=== PATIENT | male | born 1960 | race American Indian/Alaskan Native ===

== ENCOUNTER 2016-11-13 23:02 | Emergency (ER) | payer MEDICARE, MEDICAID ==
--- NOTE | 2016-11-13 23:24 | EDM.PDOC ---
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 Right Groin Pain Score (Numeric/FACES): 7 - Related Data Allergies Allergy/AdvReac Type Severity Reaction Status Date / Time amoxicillin [Amoxicillin] Allergy Facial Verified 11/13/16 23:17 Swelling cephalexin monohydrate Allergy Facial Verified 11/13/16 23:17 [From Keflex] Swelling Home Meds: Home Meds Gabapentin [Neurontin] 300 mg PO BID 04/05/14 [History] Insulin Detemir [Levemir] 30 units SQ BID 04/05/14 [History] Metoprolol Tartrate [Metoprolol Tartrate] 150 mg PO BID 04/05/14 [History] Omeprazole [Omeprazole] 20 mg PO QAM 04/05/14 [History] Calcium Acetate [PhosLo] 667 mg PO TIDMEALS 10/21/15 [History] Hydrocodone/Acetaminophen [Hydrocodon-Acetaminophn 10-325] 1 tab PO Q4H PRN [History] Sevelamer Carbonate [Renvela] 800 mg PO TIDMEALS 10/21/15 [History] B Complex & C No.20/Folic Acid [Nephrocaps Softgel] 1 mg PO DAILY 12/01/15 [ History] Fludrocortisone [Florinef] 0.1 mg PO DAILY 12/01/15 [History] Furosemide 80 mg PO DAILY 12/01/15 [History] amLODIPine [Norvasc] 10 mg PO DAILY 12/01/15 [History] Calcium Carbonate/Vitamin D3 [Calcium Carb 500 MG] 1 tab CHEW TIDMEALS 10/19/16 [History] Cholecalciferol (Vitamin D3) [Vitamin D3] 2,000 units PO DAILY 10/19/16 [History ] Multivitamin with Minerals [Multivitamins with Minerals] 1 tab PO DAILY [History] Zinc 50 mg PO DAILY 10/19/16 [History] Past Medical History HEENT History: Reports: Other (see below) Other HEENT History: tatoo to right eyelid. Torn retinia and when did surg. 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 Cardiovascular History: Reports: Bypass, High cholesterol, Heart Failure, Hypertension Respiratory History: Reports: Intubation, previous, Sleep apnea Other Respiratory History: Was suppose to get a c-pap. but did not. Gastrointestinal History: Reports: Chronic diarrhea, GERD, Hepatitis Genitourinary History: Reports: Chronic renal insuffiency, Dialysis Musculoskeletal History: Reports: Back pain, chronic, Fracture, Osteoporosis, Osteoarthritis Other Musculoskeletal History: Broken back. Neurological History: Reports: Concussion, Neuropathy, diabetic, Seizure Endocrine/Metabolic History: Reports: Diabetes, type II Dermatologic History: Reports: Cellulitis, Other (see below) Other Dermatologic History: Infected toes. - Infectious Disease History Infectious Disease History: Reports: Chicken pox, Hepatitis A - Past Surgical History HEENT Surgical History: Reports: Retinal Male Surgical History: Reports: None Social & Family History - Family History Other HEENT Family History: impaired vision mother. Cardiac: Reports: Bypass, High cholesterol, Hypertension Other Cardiac Family History: mother : Reports: Diabetic nephropathy, Dialysis Other Family History: mother Neurological: Reports: Neuropathy, diabetic Endocrine/Metabolic: Reports: Diabetes, type II Other Endocrine/Metabolic Family History: mother - Tobacco Use Smoking Status *Q: Never Smoker Years of Tobacco use: 3 Packs/Tins Daily: 0.1 Second Hand Smoke Exposure: No - Caffeine Use Caffeine Use: Reports: Coffee, Soda, Tea - Alcohol Use Days Per Week of Alcohol Use: 0 - Recreational Drug Use Recreational Drug Use: No ED ROS GENERAL - Review of Systems Review Of Systems: ROS reveals no pertinent complaints other than HPI. ED EXAM, GENERAL - Physical Exam Exam: See Below Exam Limited By: No limitations General Appearance: alert, WD/WN, mild distress, other (pain) Ears: hearing grossly normal Throat/Mouth: Normal voice, No airway compromise Head: atraumatic Neck: non-tender, full range of motion Respiratory/Chest: no respiratory distress Cardiovascular: regular rate, rhythm GI/Abdominal: guarding, tender. No: rigid, rebound Neurological: alert, oriented, normal cognition, normal gait, no motor/sensory deficits Psychiatric: other (upset) Skin Exam: Warm, Dry Lymphatic: no adenopathy Course - Vital Signs Last Recorded V/S: Last Vital Signs Temp 36.8 C 11/14/16 01:39 Pulse 79 11/14/16 01:39 Resp 18 11/14/16 01:39 BP 151/74 H 11/14/16 01:39 Pulse Ox 95 11/14/16 01:39 - Orders/Labs/Meds Orders: Active Orders 24 hr Category Date Time Status CULTURE BLOOD [BC] Stat Lab 11/14/16 01:40 Received Labs: Laboratory Tests 11/13/16 11/13/16 11/14/16 Range/Units 23:40 23:40 01:40 WBC 17.2 H (5.0-10.0) 10^3/uL RBC 3.63 L (4.6-6.2) 10^6/uL Hgb 11.0 L (14.0-18.0) g/dL Hct 32.7 L (40.0-54.0) % MCV 90.1 (80-100) fL MCH 30.3 (27.0-34.0) pg MCHC 33.6 (33.0-35.0) g/dL Plt Count 161 (150-450) 10^3/uL Neut % (Auto) 73.9 (42.2-75.2) % Lymph % (Auto) 13.8 L (20.5-50.1) % [place] % (Auto) 9.8 H (2-8) % Eos % (Auto) 2.2 (1.0-3.0) % Baso % (Auto) 0.3 (0.0-1.0) % PT 10.3 (9.0-12.0) SEC INR 1.0 (0.9-1.2) APTT 28.5 (22.0-34.0) SEC Sodium 134 L (135-145) mmol/L Potassium 4.5 (3.6-5.0) mmol/L Chloride 93 L (101-111) mmol/L Carbon Dioxide 31.0 (21.0-31.0) mmol/L Anion Gap 14.5 BUN 46 H (7-18) mg/dL Creatinine 10.1 H (0.6-1.3) mg/dL Est Cr Clr Drug Dosing 8.80 mL/min Estimated GFR (MDRD) 5 BUN/Creatinine Ratio 4.55 Glucose 159 H (74-105) mg/dL Lactic Acid (0.5-2.2) mmol/L Calcium 9.5 (8.4-10.2) mg/dl Total Bilirubin 0.4 (0.2-1.0) mg/dL AST 22 (10-42) IU/L ALT 27 (10-60) IU/L Alkaline Phosphatase 85 (42-121) IU/L Total Protein 7.5 (6.7-8.2) g/dl Albumin 3.8 (3.2-5.5) g/dl Globulin 3.7 Albumin/Globulin Ratio 1.03 / Range/Units 01:40 WBC (5.0-10.0) 10^3/uL RBC (4.6-6.2) 10^6/uL Hgb (14.0-18.0) g/dL Hct (40.0-54.0) % MCV (80-100) fL MCH (27.0-34.0) pg MCHC (33.0-35.0) g/dL Plt Count (150-450) 10^3/uL Neut % (Auto) (42.2-75.2) % Lymph % (Auto) (20.5-50.1) % [place] % (Auto) (2-8) % Eos % (Auto) (1.0-3.0) % Baso % (Auto) (0.0-1.0) % PT (9.0-12.0) SEC INR (0.9-1.2) APTT (22.0-34.0) SEC Sodium (135-145) mmol/L Potassium (3.6-5.0) mmol/L Chloride (101-111) mmol/L Carbon Dioxide (21.0-31.0) mmol/L Anion Gap BUN (7-18) mg/dL Creatinine (0.6-1.3) mg/dL Est Cr Clr Drug Dosing mL/min Estimated GFR (MDRD) BUN/Creatinine Ratio Glucose (74-105) mg/dL Lactic Acid 0.9 (0.5-2.2) mmol/L Calcium (8.4-10.2) mg/dl Total Bilirubin (0.2-1.0) mg/dL AST (10-42) IU/L ALT (10-60) IU/L Alkaline Phosphatase (42-121) IU/L Total Protein (6.7-8.2) g/dl Albumin (3.2-5.5) g/dl Globulin Albumin/Globulin Ratio Meds: Medications Discontinued Medications Generic Name Dose Route Start Last Admin Trade Name Dangelo PRN Reason Stop Dose Admin Hydromorphone HCl 1 mg 11/14/16 00:21 11/14/16 00:26 Dilaudid IVPUSH 11/14/16 00:22 1 mg ONETIME ONE Administration Ciprofloxacin/Dextrose 400 mg/ 200 mls @ 200 mls/hr 11/14/16 01:02 11/14/16 01:55 Premix IV 11/14/16 02:01 200 mls/hr ONETIME ONE Administration Metronidazole 500 mg/ Premix 100 mls @ 100 mls/hr 11/14/16 01:02 11/14/16 01: 36 IV 11/14/16 02:01 100 mls/hr ONETIME ONE Administration Ondansetron HCl 4 mg 11/14/16 00:21 11/14/16 00:26 Zofran IV 11/14/16 00:22 4 mg ONETIME ONE Administration - Re-Assessments/Exams Free Text/Narrative Re-Assessment/Exam: 11/14/16 00:20 results discussed with Pt and daughter states problem began with diarrhoea & vomiting on-off but tonight pain got worse. 11/14/16 01:03 GF>MINOT>ROBINSON. Dr Culp kindly accepted Pt. Departure - Departure Time of Disposition: 02:00 Disposition: DC/Tfer to Acute Hospital 02 Condition: fair Clinical Impression: Ischemic bowel syndrome, Pseudomembranous colitis, Colitis Referrals: PCP,Unobtain [Primary Care Provider] - Forms: Interfacility Transfer EMTALA - My Orders Last 24 Hours: My Active Orders 11/14/16 01:40 CULTURE BLOOD [BC] Stat - Assessment/Plan Last 24 Hours: My Active Orders 11/14/16 01:40 CULTURE BLOOD [BC] Stat
[2016-11-14] MEDS ORDERED: Ondansetron 4 MG/2 ML SDV IV ONE (00:21)
[2016-11-14] MEDS ORDERED: HYDROmorphone 1 MG/ML Syringe IVPUSH ONE (00:21)
[2016-11-14] MEDS ORDERED: metroNIDAZOLE/Normal Saline 500 MG in Premix Bag 100 BAG IV ONE (01:02)
[2016-11-14 01:40] VITALS: BP 151/74
[2016-11-14] MEDS: Ciprofloxacin in D5W 400 MG in Premix Bag 1 BAG IV ONE ×4 (01:47→01:55)
== END 2016-11-14 02:01 ==
LOC: DL.ED 23:02
DX: A04.7 Enterocolitis due to Clostridium difficile (principal); K55.9 Vascular disorder of intestine, unspecified; E78.00 Pure hypercholesterolemia, unspecified; I11.0 Hypertensive heart disease with heart failure; I50.9 Heart failure, unspecified; K21.9 Gastro-esophageal reflux disease without esophagitis; M19.90 Unspecified osteoarthritis, unspecified site; E11.40 Type 2 diabetes mellitus with diabetic neuropathy, unspecified; Z88.1 Allergy status to other antibiotic agents; Z79.4 Long term (current) use of insulin; Z79.899 Other long term (current) drug therapy
CPT/HCPCS: 36415; 74176; 80053; 83605; 85025; 85610; 85730; 87040; 96365; 96375; 99285; J0744; J1170; J2405; 99283

== ENCOUNTER 2016-11-19 17:50 | Emergency (ER) | payer MEDICARE, MEDICAID ==
--- NOTE | 2016-11-19 18:55 | EDM.PDOC ---
ED HISTORY OF PRESENT ILLNESS - General Chief Complaint: Cardiovascular Problem Stated Complaint: HEART ATTACK Time Seen by Provider: 11/19/16 18:54 Source of Information: Reports: Patient, Family History Limitations: Reports: No limitations - History of Present Illness INITIAL COMMENTS - FREE TEXT/NARRATIVE: s/p GB surgery tuesday was OK then Tuesday been having chest discomfort and worse today with SOB but no chest pain, went to [facility] and sent here. - Related Data Allergies/ADRs: Allergies Allergy/AdvReac Type Severity Reaction Status Date / Time amoxicillin [Amoxicillin] Allergy Facial Verified 11/19/16 18:46 Swelling cephalexin monohydrate Allergy Facial Verified 11/19/16 18:46 [From Keflex] Swelling Home Meds: Home Meds Gabapentin [Neurontin] 300 mg PO BID 04/05/14 [History] Insulin Detemir [Levemir] 30 units SQ BID 04/05/14 [History] Metoprolol Tartrate [Metoprolol Tartrate] 150 mg PO BID 04/05/14 [History] Omeprazole [Omeprazole] 20 mg PO QAM 04/05/14 [History] Calcium Acetate [PhosLo] 667 mg PO TIDMEALS 10/21/15 [History] Hydrocodone/Acetaminophen [Hydrocodon-Acetaminophn 10-325] 1 tab PO Q4H PRN [History] Sevelamer Carbonate [Renvela] 800 mg PO TIDMEALS 10/21/15 [History] B Complex & C No.20/Folic Acid [Nephrocaps Softgel] 1 mg PO DAILY 12/01/15 [ History] Fludrocortisone [Florinef] 0.1 mg PO DAILY 12/01/15 [History] Furosemide 80 mg PO DAILY 12/01/15 [History] amLODIPine [Norvasc] 10 mg PO DAILY 12/01/15 [History] Calcium Carbonate/Vitamin D3 [Calcium Carb 500 MG] 1 tab CHEW TIDMEALS 10/19/16 [History] Cholecalciferol (Vitamin D3) [Vitamin D3] 2,000 units PO DAILY 10/19/16 [History ] Multivitamin with Minerals [Multivitamins with Minerals] 1 tab PO DAILY [History] Zinc 50 mg PO DAILY 10/19/16 [History] Past Medical History HEENT History: Reports: Other (see below) Other HEENT History: tatoo to right eyelid. Torn retinia and when did surg. 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 Cardiovascular History: Reports: Bypass, High cholesterol, Heart Failure, Hypertension Respiratory History: Reports: Intubation, previous, Sleep apnea Other Respiratory History: Was suppose to get a c-pap. but did not. Gastrointestinal History: Reports: Chronic diarrhea, GERD, Hepatitis Genitourinary History: Reports: Chronic renal insuffiency, Dialysis Musculoskeletal History: Reports: Back pain, chronic, Fracture, Osteoporosis, Osteoarthritis Other Musculoskeletal History: Broken back. Neurological History: Reports: Concussion, Neuropathy, diabetic, Seizure Endocrine/Metabolic History: Reports: Diabetes, type II Dermatologic History: Reports: Cellulitis, Other (see below) Other Dermatologic History: Infected toes. - Infectious Disease History Infectious Disease History: Reports: Chicken pox, Hepatitis A - Past Surgical History HEENT Surgical History: Reports: Retinal GI Surgical History: Reports: Cholecystectomy Other GI Surgeries/Procedures: 4 port cholecystectomy Male Surgical History: Reports: None Social & Family History - Family History Other HEENT Family History: impaired vision mother. Cardiac: Reports: Bypass, High cholesterol, Hypertension Other Cardiac Family History: mother : Reports: Diabetic nephropathy, Dialysis Other Family History: mother Neurological: Reports: Neuropathy, diabetic Endocrine/Metabolic: Reports: Diabetes, type II Other Endocrine/Metabolic Family History: mother - Tobacco Use Smoking Status *Q: Never Smoker Years of Tobacco use: 3 Packs/Tins Daily: 0.1 Second Hand Smoke Exposure: No - Caffeine Use Caffeine Use: Reports: Coffee, Soda, Tea - Alcohol Use Days Per Week of Alcohol Use: 0 - Recreational Drug Use Recreational Drug Use: No ED ROS GENERAL - Review of Systems Review Of Systems: ROS reveals no pertinent complaints other than HPI. ED EXAM, GENERAL - Physical Exam Exam: See Below Exam Limited By: No limitations General Appearance: alert, WD/WN, mild distress, other (upset) Ears: hearing grossly normal Throat/Mouth: Normal voice, No airway compromise Head: atraumatic Neck: non-tender, full range of motion Respiratory/Chest: no respiratory distress, no accessory muscle use, rhonchi Cardiovascular: regular rate, rhythm GI/Abdominal: soft, non tender Neurological: alert, oriented, normal cognition, normal gait, no motor/sensory deficits Psychiatric: flat affect Skin Exam: Warm, Dry Lymphatic: no adenopathy Course - Vital Signs Last Recorded V/S: Last Vital Signs Temp 36.3 C 11/19/16 18:34 Pulse 74 11/19/16 18:34 Resp 19 11/19/16 18:34 BP 149/73 H 11/19/16 18:34 Pulse Ox 100 11/19/16 18:34 - Orders/Labs/Meds Orders: Active Orders 24 hr Category Date Time Status EKG 12 Lead [EKG Documentation Completion] [RC] STAT Care 11/19/16 18:52 Active Chest 1V Frontal [CR] Urgent Exams 11/19/16 19:55 Ordered Labs: Laboratory Tests 11/19/16 11/19/16 11/19/16 Range/Units 19:00 19:00 19:00 WBC 9.8 (5.0-10.0) 10^3/uL RBC 4.07 L (4.6-6.2) 10^6/uL Hgb 12.1 L (14.0-18.0) g/dL Hct 36.2 L (40.0-54.0) % MCV 88.9 (80-100) fL MCH 29.7 (27.0-34.0) pg MCHC 33.4 (33.0-35.0) g/dL Plt Count 200 (150-450) 10^3/uL Neut % (Auto) 64.7 (42.2-75.2) % Lymph % (Auto) 16.0 L (20.5-50.1) % [place] % (Auto) 15.3 H (2-8) % Eos % (Auto) 3.5 H (1.0-3.0) % Baso % (Auto) 0.5 (0.0-1.0) % D-Dimer, Quantitative 2330 H (0-400) ng/mL Sodium 136 (135-145) mmol/L Potassium 4.5 (3.6-5.0) mmol/L Chloride 97 L (101-111) mmol/L Carbon Dioxide 29.0 (21.0-31.0) mmol/L Anion Gap 14.5 BUN 15 (7-18) mg/dL Creatinine 7.3 H (0.6-1.3) mg/dL Est Cr Clr Drug Dosing 12.13 mL/min Estimated GFR (MDRD) 8 BUN/Creatinine Ratio 2.05 Glucose 203 H (74-105) mg/dL Calcium 9.5 (8.4-10.2) mg/dl Total Bilirubin 0.4 (0.2-1.0) mg/dL AST 64 H (10-42) IU/L ALT 84 H (10-60) IU/L Alkaline Phosphatase 155 H (42-121) IU/L Troponin I 0.02 (0.00-0.02) ng/ml B-Natriuretic Peptide 1000 H (0-100) pg/ml Total Protein 7.4 (6.7-8.2) g/dl Albumin 3.4 (3.2-5.5) g/dl Globulin 4.0 Albumin/Globulin Ratio 0.85 - Re-Assessments/Exams Free Text/Narrative Re-Assessment/Exam: 11/19/16 19:56 results discussed with Pt and son. 11/19/16 20:[address] Marquis @ who kindly accepted pt. Departure - Departure Time of Disposition: 20:14 Disposition: DC/Tfer to Acute Hospital 02 Reason for Transfer *Q: Other Condition: good Clinical Impression: Dyspnea on exertion, Elevated d-dimer, Status post cholecystectomy, Elevated brain natriuretic peptide (BNP) level Forms: Interfacility Transfer EMTALA - My Orders Last 24 Hours: My Active Orders 11/19/16 18:52 EKG 12 Lead [EKG Documentation Completion] [RC] STAT 11/19/16 19:55 Chest 1V Frontal [CR] Urgent - Assessment/Plan Last 24 Hours: My Active Orders 11/19/16 18:52 EKG 12 Lead [EKG Documentation Completion] [RC] STAT 11/19/16 19:55 Chest 1V Frontal [CR] Urgent
[2016-11-19 20:17] VITALS: BP 141/80
--- NOTE | 2016-11-23 11:22 | EKG ---
11/19/2016 - [facility] - TIME: 1852 hours. EKG shows sinus rhythm. There is prolonged QT interval, left axis deviation. [facility] /[id number]
== END 2016-11-19 21:01 ==
LOC: DL.ED 17:50
DX: R06.09 Other forms of dyspnea (principal); R79.89 Other specified abnormal findings of blood chemistry; R79.1 Abnormal coagulation profile; E78.00 Pure hypercholesterolemia, unspecified; I11.0 Hypertensive heart disease with heart failure; I50.9 Heart failure, unspecified; K21.9 Gastro-esophageal reflux disease without esophagitis; M19.90 Unspecified osteoarthritis, unspecified site; E11.40 Type 2 diabetes mellitus with diabetic neuropathy, unspecified; Z95.1 Presence of aortocoronary bypass graft; Z90.49 Acquired absence of other specified parts of digestive tract; Z88.1 Allergy status to other antibiotic agents; Z79.4 Long term (current) use of insulin; Z79.899 Other long term (current) drug therapy
CPT/HCPCS: 36415; 71010; 80053; 83880; 84484; 85025; 85379; 93005; 93010; 99284; 99285

== ENCOUNTER 2017-05-21 04:55 | Emergency (ER) | payer MEDICARE, MEDICAID ==
--- NOTE | 2017-05-21 05:21 | EDM.PDOC ---
ED HPI GENERAL MEDICAL PROBLEM - General Chief Complaint: Cardiovascular Problem Stated Complaint: PACEMAKER MESSING UP [id number] Time Seen by Provider: 05/21/17 05:17 Source of Information: Reports: Patient History Limitations: Reports: No Limitations - History of Present Illness INITIAL COMMENTS - FREE TEXT/NARRATIVE: states got home from visiting friends and about to get to bed and can hear his heart rate going up & down. sees Dr See once yearly for paceer check last check in denies CP/SOB. 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 - Related Data Allergies Allergy/AdvReac Type Severity Reaction Status Date / Time amoxicillin [Amoxicillin] Allergy Facial Verified 05/21/17 05:33 Swelling cephalexin monohydrate Allergy Facial Verified 05/21/17 05:33 [From Keflex] Swelling Home Meds: Home Meds Gabapentin [Neurontin] 300 mg PO BID 04/05/14 [History] Insulin Detemir [Levemir] 30 units SQ BID 04/05/14 [History] Metoprolol Tartrate [Metoprolol Tartrate] 150 mg PO BID 04/05/14 [History] Omeprazole [Omeprazole] 20 mg PO QAM 04/05/14 [History] Calcium Acetate [PhosLo] 667 mg PO TIDMEALS 10/21/15 [History] Sevelamer Carbonate [Renvela] 800 mg PO TIDMEALS 10/21/15 [History] B Complex & C No.20/Folic Acid [Nephrocaps Softgel] 1 mg PO DAILY 12/01/15 [ History] Fludrocortisone [Florinef] 0.1 mg PO DAILY 12/01/15 [History] Furosemide 80 mg PO DAILY 12/01/15 [History] amLODIPine [Norvasc] 10 mg PO DAILY 12/01/15 [History] Calcium Carbonate/Vitamin D3 [Calcium Carb 500 MG] 1 tab CHEW TIDMEALS 10/19/16 [History] Cholecalciferol (Vitamin D3) [Vitamin D3] 2,000 units PO DAILY 10/19/16 [History ] Multivitamin with Minerals [Multivitamins with Minerals] 1 tab PO DAILY [History] Zinc 50 mg PO DAILY 10/19/16 [History] Past Medical History HEENT History: Reports: Other (See Below) Other HEENT History: tatoo to right eyelid. Torn retinia and when did surg. 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 Cardiovascular History: Reports: Bypass, High Cholesterol, Heart Failure, Hypertension Respiratory History: Reports: Intubation, Previous, Sleep Apnea Other Respiratory History: Was suppose to get a c-pap. but did not. Gastrointestinal History: Reports: Chronic Diarrhea, GERD, Hepatitis Genitourinary History: Reports: Chronic Renal Insuffiency, Dialysis Musculoskeletal History: Reports: Back Pain, Chronic, Fracture, Osteoporosis, Osteoarthritis Other Musculoskeletal History: Broken back. Neurological History: Reports: Concussion, Neuropathy, Diabetic, Seizure Endocrine/Metabolic History: Reports: Diabetes, Type II Dermatologic History: Reports: Cellulitis, Other (See Below) Other Dermatologic History: Infected toes. - Infectious Disease History Infectious Disease History: Reports: Chicken Pox, Hepatitis A - Past Surgical History HEENT Surgical History: Reports: Retinal GI Surgical History: Reports: Cholecystectomy Other GI Surgeries/Procedures: 4 port cholecystectomy Male Surgical History: Reports: None Social & Family History - Family History Other HEENT Family History: impaired vision mother. Cardiac: Reports: Bypass, High Cholesterol, Hypertension Other Cardiac Family History: mother : Reports: Diabetic Nephropathy, Dialysis Other Family History: mother Neurological: Reports: Neuropathy, Diabetic Endocrine/Metabolic: Reports: Diabetes, type II Other Endocrine/Metabolic Family History: mother - Tobacco Use Smoking Status *Q: Never Smoker Years of Tobacco use: 3 Packs/Tins Daily: 0.1 Second Hand Smoke Exposure: No - Caffeine Use Caffeine Use: Reports: Coffee, Soda, Tea - Alcohol Use Days Per Week of Alcohol Use: 0 - Recreational Drug Use Recreational Drug Use: No ED ROS GENERAL - Review of Systems Review Of Systems: ROS reveals no pertinent complaints other than HPI. ED EXAM, GENERAL - Physical Exam Exam: See Below Exam Limited By: No Limitations General Appearance: Alert, WD/WN, No Apparent Distress, Other (pleasant) Ears: Hearing Grossly Normal Throat/Mouth: Normal Voice, No Airway Compromise Head: Atraumatic Neck: Non-Tender, Full Range of Motion Respiratory/Chest: No Respiratory Distress Cardiovascular: Irregularly Irregular GI/Abdominal: Soft, Non-Tender Neurological: Alert, Oriented, Normal Cognition, Normal Gait, No Motor/Sensory Deficits Psychiatric: Normal Affect, Normal Mood Skin Exam: Warm, Dry, Normal Color Lymphatic: No Adenopathy Course - Vital Signs Last Recorded V/S: Last Vital Signs Temp 35.4 C 05/21/17 05:30 Pulse 52 L 05/21/17 05:30 Resp 20 05/21/17 05:30 BP 144/76 H 05/21/17 05:30 Pulse Ox 100 05/21/17 05:30 - Orders/Labs/Meds Orders: Active Orders 24 hr Category Date Time Status EKG 12 Lead [EKG Documentation Completion] [RC] STAT Care 05/21/17 05:21 Active Labs: Laboratory Tests 05/21/17 05/21/17 Range/Units 05:30 05:30 WBC 7.3 (5.0-10.0) 10^3/uL RBC 4.36 L (4.6-6.2) 10^6/uL Hgb 13.5 L (14.0-18.0) g/dL Hct 40.2 (40.0-54.0) % MCV 92.2 (80-100) fL MCH 31.0 (27.0-34.0) pg MCHC 33.6 (33.0-35.0) g/dL Plt Count 192 (150-450) 10^3/uL Neut % (Auto) 47.2 (42.2-75.2) % Lymph % (Auto) 35.4 (20.5-50.1) % [place] % (Auto) 12.1 H (2-8) % Eos % (Auto) 4.1 H (1.0-3.0) % Baso % (Auto) 1.2 H (0.0-1.0) % Sodium 136 (135-145) mmol/L Potassium 4.0 (3.6-5.0) mmol/L Chloride 95 L (101-111) mmol/L Carbon Dioxide 24.0 (21.0-31.0) mmol/L Anion Gap 21.0 BUN 28 H (7-18) mg/dL Creatinine 8.5 H (0.6-1.3) mg/dL Est Cr Clr Drug Dosing 10.46 mL/min Estimated GFR (MDRD) 7 BUN/Creatinine Ratio 3.29 Glucose 179 H (74-105) mg/dL Calcium 8.4 (8.4-10.2) mg/dl Total Bilirubin 0.5 (0.2-1.0) mg/dL AST 30 (10-42) IU/L ALT 38 (10-60) IU/L Alkaline Phosphatase 114 (42-121) IU/L Troponin I < 0.02 (0.00-0.02) ng/ml Total Protein 8.3 H (6.7-8.2) g/dl Albumin 4.0 (3.2-5.5) g/dl Globulin 4.3 Albumin/Globulin Ratio 0.93 - Re-Assessments/Exams Free Text/Narrative Re-Assessment/Exam: 05/21/17 06:19 results discussed with pt who is feeling ok presently except for his heart feeling "funny". case discussed with Dr Ybarra @ who kindly accepted pt. Departure - Departure Time of Disposition: 06:20 Disposition: DC/Tfer to Acute Hospital 02 Reason for Transfer *Q: Other Condition: Good Clinical Impression: Pacemaker malfunction Qualifiers: Encounter type: initial encounter Qualified Code(s): T82.111A - Breakdown ( mechanical) of cardiac pulse generator (battery), initial encounter Forms: Interfacility Transfer EMTALA - My Orders Last 24 Hours: My Active Orders 05/21/17 05:21 EKG 12 Lead [EKG Documentation Completion] [RC] STAT - Assessment/Plan Last 24 Hours: My Active Orders 05/21/17 05:21 EKG 12 Lead [EKG Documentation Completion] [RC] STAT
[2017-05-21 05:32] VITALS: BP 144/76
[2017-05-21 05:58] LABS: CHLORIDE,CL 95 mmol/L (101-111); SODIUM,NA 136 mmol/L (135-145)
--- NOTE | 2017-05-30 10:41 | EKG ---
05/21/2017- [facility] - This is a standard 12-lead EKG showing normal sinus rhythm with a ventricular rate of 71 beats per minute. Multiple premature ventricular complexes. No significant ST changes. Normal ND interval, QRS duration. [facility] /[id number]
== END 2017-05-21 07:15 ==
LOC: DL.ED 04:55
DX: T82.111A Breakdown (mechanical) of cardiac pulse generator (battery), initial encounter (principal); I13.0 Hypertensive heart and chronic kidney disease with heart failure and stage 1 through stage 4 chronic kidney disease, or unspecified chronic kidney disease; E11.22 Type 2 diabetes mellitus with diabetic chronic kidney disease; E11.40 Type 2 diabetes mellitus with diabetic neuropathy, unspecified; N18.9 Chronic kidney disease, unspecified; E78.00 Pure hypercholesterolemia, unspecified; M19.90 Unspecified osteoarthritis, unspecified site; M81.0 Age-related osteoporosis without current pathological fracture; Z90.49 Acquired absence of other specified parts of digestive tract; Z98.890 Other specified postprocedural states; Z79.4 Long term (current) use of insulin; Z79.899 Other long term (current) drug therapy; Z88.1 Allergy status to other antibiotic agents
CPT/HCPCS: 36415; 80053; 84484; 85025; 93005; 93010; 99284; 99285

== ENCOUNTER 2017-08-24 20:47 | Emergency (ER) | payer MEDICARE, MEDICAID ==
[2017-08-24] MEDS ORDERED: Acetaminophen/HYDROcodone 325-10 MG Tab PO ONE (20:48)
[2017-08-24] MEDS ORDERED: Ondansetron 4 MG/2 ML SDV IV ONE (21:13)
[2017-08-24] MEDS ORDERED: Sodium Chloride 0.9% 1,000 ML IV ONE (21:13)
[2017-08-24] MEDS ORDERED: HYDROmorphone 1 MG/ML Syringe IVPUSH ONE (21:13)
--- NOTE | 2017-08-24 21:15 | EDM.PDOC ---
ED HPI GENERAL MEDICAL PROBLEM - General Chief Complaint: Gastrointestinal Problem Stated Complaint: SEVERE ABD PAIN Time Seen by Provider: 08/24/17 21:07 Source of Information: Reports: Patient History Limitations: Reports: No Limitations - History of Present Illness INITIAL COMMENTS - FREE TEXT/NARRATIVE: ED with c/o right sided abdominal pain since 0900. unable to rest with pain, vomited x 1. CRF, on dialysis. last run today. Emesis x 1 about 2 hours ago. Onset: Today Treatments MAT PACKER: Reports: Aspirin Right Lower Abdomen Pain Score (Numeric/FACES): 9 - Related Data Allergies Allergy/AdvReac Type Severity Reaction Status Date / Time amoxicillin [Amoxicillin] Allergy Facial Verified 08/24/17 21:22 Swelling cephalexin monohydrate Allergy Facial Verified 08/24/17 21:22 [From Keflex] Swelling Home Meds: Home Meds Gabapentin [Neurontin] 300 mg PO BID 04/05/14 [History] Insulin Detemir [Levemir] 30 units SQ BID 04/05/14 [History] Metoprolol Tartrate [Metoprolol Tartrate] 150 mg PO BID 04/05/14 [History] Omeprazole [Omeprazole] 20 mg PO QAM 04/05/14 [History] Calcium Acetate [PhosLo] 667 mg PO TIDMEALS 10/21/15 [History] Sevelamer Carbonate [Renvela] 800 mg PO TIDMEALS 10/21/15 [History] B Complex & C No.20/Folic Acid [Nephrocaps Softgel] 1 mg PO DAILY 12/01/15 [ History] Fludrocortisone [Florinef] 0.1 mg PO DAILY 12/01/15 [History] Furosemide 80 mg PO DAILY 12/01/15 [History] amLODIPine [Norvasc] 10 mg PO DAILY 12/01/15 [History] Calcium Carbonate/Vitamin D3 [Calcium Carb 500 MG] 1 tab CHEW TIDMEALS 10/19/16 [History] Cholecalciferol (Vitamin D3) [Vitamin D3] 2,000 units PO DAILY 10/19/16 [History ] Multivitamin with Minerals [Multivitamins with Minerals] 1 tab PO DAILY [History] Zinc 50 mg PO DAILY 10/19/16 [History] Past Medical History HEENT History: Reports: Other (See Below) Other HEENT History: tatoo to right eyelid. Torn retinia and when did surg. 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 Cardiovascular History: Reports: Bypass, High Cholesterol, Heart Failure, Hypertension Respiratory History: Reports: Intubation, Previous, Sleep Apnea Other Respiratory History: Was suppose to get a c-pap. but did not. Gastrointestinal History: Reports: Chronic Diarrhea, GERD, Hepatitis Genitourinary History: Reports: Chronic Renal Insuffiency, Dialysis Musculoskeletal History: Reports: Back Pain, Chronic, Fracture, Osteoporosis, Osteoarthritis Other Musculoskeletal History: Broken back. Neurological History: Reports: Concussion, Neuropathy, Diabetic, Seizure Endocrine/Metabolic History: Reports: Diabetes, Type II Dermatologic History: Reports: Cellulitis, Other (See Below) Other Dermatologic History: Infected toes. - Infectious Disease History Infectious Disease History: Reports: Chicken Pox, Hepatitis A - Past Surgical History HEENT Surgical History: Reports: Retinal GI Surgical History: Reports: Cholecystectomy Other GI Surgeries/Procedures: 4 port cholecystectomy Male Surgical History: Reports: None Social & Family History - Family History Other HEENT Family History: impaired vision mother. Cardiac: Reports: Bypass, High Cholesterol, Hypertension Other Cardiac Family History: mother : Reports: Diabetic Nephropathy, Dialysis Other Family History: mother Neurological: Reports: Neuropathy, Diabetic Endocrine/Metabolic: Reports: Diabetes, type II Other Endocrine/Metabolic Family History: mother - Tobacco Use Smoking Status *Q: Never Smoker Years of Tobacco use: 3 Packs/Tins Daily: 0.1 Second Hand Smoke Exposure: No - Caffeine Use Caffeine Use: Reports: Coffee - Alcohol Use Days Per Week of Alcohol Use: 0 - Recreational Drug Use Recreational Drug Use: No ED ROS GENERAL - Review of Systems Review Of Systems: See Below Constitutional: Denies: Fever, Chills HEENT: Reports: No Symptoms Respiratory: Reports: No Symptoms Cardiovascular: Reports: No Symptoms Endocrine: Reports: Other (Dialysis) GI/Abdominal: Reports: Abdominal Pain, Vomiting (x1). Denies: Distension : Reports: No Symptoms Musculoskeletal: Reports: No Symptoms Skin: Reports: No Symptoms Neurological: Reports: No Symptoms ED EXAM, GI/ABD - Physical Exam Exam: See Below Exam Limited By: No Limitations General Appearance: Alert, Moderate Distress Eyes: Left: EOMI Ears: Normal External Exam Nose: Normal Inspection Throat/Mouth: Normal Inspection, Other (dry mucus membranes) Head: Atraumatic, Normocephalic Neck: Normal Inspection, Full Range of Motion Respiratory/Chest: Decreased Breath Sounds (bases) Cardiovascular: Normal Peripheral Pulses, Regular Rate, Rhythm GI/Abdominal Exam: Rebound (right lwer quad), Tender (right upper to lower), Abnormal Bowel Sounds (hyper upper, hypo lower) Extremities: Normal Inspection Neurological: Alert, Oriented, Normal Cognition Psychiatric: Flat Affect Skin Exam: Warm, Dry, Jaundice Course - Vital Signs Last Recorded V/S: Last Vital Signs Temp 97.8 F 08/24/17 21:12 Pulse 58 L 08/24/17 21:58 Resp 14 08/24/17 21:58 BP 136/66 08/24/17 21:58 Pulse Ox 92 L 08/24/17 21:58 - Orders/Labs/Meds Labs: Laboratory Tests 08/24/17 08/24/17 08/24/17 Range/Units 21:19 21:19 21:19 WBC 15.5 H (5.0-10.0) 10^3/uL RBC 4.41 L (4.6-6.2) 10^6/uL Hgb 13.5 L (14.0-18.0) g/dL Hct 39.7 L (40.0-54.0) % MCV 90.0 (80-100) fL MCH 30.6 (27.0-34.0) pg MCHC 34.0 (33.0-35.0) g/dL Plt Count 188 (150-450) 10^3/uL Neut % (Auto) 81.6 H (42.2-75.2) % Lymph % (Auto) 8.5 L (20.5-50.1) % [place] % (Auto) 6.8 (2-8) % Eos % (Auto) 2.8 (1.0-3.0) % Baso % (Auto) 0.3 (0.0-1.0) % Sodium 137 (135-145) mmol/L Potassium 4.8 (3.6-5.0) mmol/L Chloride 97 L (101-111) mmol/L Carbon Dioxide 26.0 (21.0-31.0) mmol/L Anion Gap 18.8 BUN 29 H (7-18) mg/dL Creatinine 8.3 H (0.6-1.3) mg/dL Est Cr Clr Drug Dosing 10.58 mL/min Estimated GFR (MDRD) 7 BUN/Creatinine Ratio 3.49 Glucose 138 H (74-105) mg/dL Lactic Acid 1.9 (0.5-2.2) mmol/L Calcium 8.9 (8.4-10.2) mg/dl Total Bilirubin 0.8 (0.2-1.0) mg/dL AST 41 (10-42) IU/L ALT 39 (10-60) IU/L Alkaline Phosphatase 103 (42-121) IU/L Total Protein 7.7 (6.7-8.2) g/dl Albumin 4.0 (3.2-5.5) g/dl Globulin 3.7 Albumin/Globulin Ratio 1.08 Amylase 70 (28-100) U/L Lipase 41 (22-51) U/L Meds: Medications Discontinued Medications Generic Name Dose Route Start Last Admin Trade Name Freq PRN Reason Stop Dose Admin Hydrocodone Bitart/Acetaminophen Confirm 08/24/17 23:02 08/24/17 23:08 Jonancy 325-5 Mg Administered 08/24/17 23:03 Not Given Dose 2 tab .ROUTE .STK-MED ONE Ciprofloxacin 500 mg 08/24/17 22:46 08/24/17 22:51 Ciprofloxacin Hcl PO 08/24/17 22:47 500 mg ONETIME ONE Administration Hydromorphone HCl 1 mg 08/24/17 21:13 08/24/17 21:19 Dilaudid IVPUSH 08/24/17 21:14 1 mg ONETIME ONE Administration Sodium Chloride 1,000 mls @ 50 mls/hr 08/24/17 21:13 08/24/17 21:19 Normal Saline IV 08/25/17 17:12 50 mls/hr .BOLUS ONE Administration Metronidazole 250 mg 08/24/17 22:40 08/24/17 23:42 Metronidazole PO 08/24/17 22:41 Not Given ONETIME ONE Ondansetron HCl 4 mg 08/24/17 21:13 08/24/17 21:19 Zofran IV 08/24/17 21:14 4 mg ONETIME ONE Administration - Radiology Interpretation Free Text/Narrative:: CT abdomen: Entercolitis Departure - Departure Time of Disposition: 22:48 Disposition: Home, Self-Care 01 Condition: Fair Clinical Impression: Enterocolitis - Discharge Information Instructions: Abdominal Pain, Adult, [id number] Forms: ED Department Discharge Additional Instructions: flagyl 500mg one three times daily for one week Cipro 500mg one daily for one week follow up with primary care on Tuesday Urgent return if increased pain and develop fever light diet hypdrocodone 5/325 one every 6 hours as needed for severe pain
[2017-08-24 22:00] VITALS: BP 136/66
[2017-08-24] MEDS ORDERED: metroNIDAZOLE 250 MG Tab PO ONE (22:40)
[2017-08-24] MEDS ORDERED: Ciprofloxacin 500 MG Tab PO ONE (22:46)
[2017-08-24] MEDS ORDERED: Acetaminophen/HYDROcodone 325-5 MG Tab ONE (23:02)
== END 2017-08-24 23:04 | disposition home or self-care (01) ==
LOC: DL.ED 20:47
DX: K52.9 Noninfective gastroenteritis and colitis, unspecified (principal); I13.0 Hypertensive heart and chronic kidney disease with heart failure and stage 1 through stage 4 chronic kidney disease, or unspecified chronic kidney disease; I50.9 Heart failure, unspecified; E78.00 Pure hypercholesterolemia, unspecified; N18.9 Chronic kidney disease, unspecified; Z88.1 Allergy status to other antibiotic agents; Z88.6 Allergy status to analgesic agent; Z79.899 Other long term (current) drug therapy
CPT/HCPCS: 36415; 74176; 80053; 82150; 83605; 83690; 85025; 96361; 96374; 96375; 99284; A9270; J1170; J2405; J7030

== ENCOUNTER 2019-01-01 05:42 | Emergency (ER) | payer MEDICARE, MEDICAID ==
[2019-01-01] MEDS ORDERED: EPINEPHrine 1:10,000 1 MG/10 ML Syringe IV ONE (05:43)
--- NOTE | 2019-01-01 06:13 | EDM.PDOC ---
ED HPI GENERAL MEDICAL PROBLEM - General Chief Complaint: CPR in Progress Stated Complaint: AMBULANCE-CODE BLUE Time Seen by Provider: 01/01/19 05:42 Source of Information: Reports: EMS, Family - History of Present Illness INITIAL COMMENTS - FREE TEXT/NARRATIVE: ED via [facility] with CPR in progress. Patient found by family with seizure like activity, stopped breathing and family initiated CPR approximately 5 am . ALS arrival at 0515. Isaias device on patient per EMS. 7.5 ET , Moderate to severe gastric distension. Coarse breath sounds Skin cool mottled, , nail beds cyanotic. No Palpable pulse. shock x3, EPi x 2 baseline asystole firing, no capture pacer. Empty bottle of Gabapentin at bedside RX date of October. Son reported that patient only c/o yesterday of aching to arms and legs , [facility] normal activity, c/o pain to legs and extremities prior to bed.. 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: CPR - Related Data Allergies Allergy/AdvReac Type Severity Reaction Status Date / Time amoxicillin [Amoxicillin] Allergy Facial Verified 08/31/18 22:38 Swelling cephalexin monohydrate Allergy Facial Verified 08/31/18 22:38 [From Keflex] Swelling Home Meds: Home Meds Gabapentin [Neurontin] 300 mg PO BID 04/05/14 [History] Insulin Detemir [Levemir] 30 units SQ BID 04/05/14 [History] Metoprolol Tartrate 150 mg PO BID 04/05/14 [History] Omeprazole 20 mg PO QAM 04/05/14 [History] Calcium Acetate [PhosLo] 667 mg PO TIDMEALS 10/21/15 [History] Sevelamer Carbonate [Renvela] 800 mg PO TIDMEALS 10/21/15 [History] B Complex W-C No.20/Folic Acid [Nephrocaps Softgel] 1 mg PO DAILY 12/01/15 [ History] Fludrocortisone [Florinef] 0.1 mg PO DAILY 12/01/15 [History] Furosemide 80 mg PO DAILY 12/01/15 [History] amLODIPine [Norvasc] 10 mg PO DAILY 12/01/15 [History] Calcium Carbonate/Vitamin D3 [Calcium Carb 500 MG] 1 tab CHEW TIDMEALS 10/19/16 [History] Cholecalciferol (Vitamin D3) [Vitamin D3] 2,000 units PO DAILY 10/19/16 [History ] Multivitamin with Minerals [Multivitamins with Minerals] 1 tab PO DAILY [History] Zinc 50 mg PO DAILY 10/19/16 [History] Past Medical History HEENT History: Reports: Other (See Below) Other HEENT History: tatoo to right eyelid. Torn retinia and when did surg. 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 Cardiovascular History: Reports: Bypass, Heart Failure, High Cholesterol, Hypertension, Stents Respiratory History: Reports: Intubation, Previous, Sleep Apnea Other Respiratory History: Was suppose to get a c-pap. but did not. Gastrointestinal History: Reports: Chronic Diarrhea, GERD, Hepatitis Genitourinary History: Reports: Chronic Renal Insuffiency, Dialysis Musculoskeletal History: Reports: Back Pain, Chronic, Fracture, Osteoporosis, Osteoarthritis Other Musculoskeletal History: Broken back. Neurological History: Reports: Concussion, Neuropathy, Diabetic, Seizure Psychiatric History: Reports: None Endocrine/Metabolic History: Reports: Diabetes, Type II Hematologic History: Reports: None Immunologic History: Reports: None Oncologic (Cancer) History: Reports: None Dermatologic History: Reports: Cellulitis, Other (See Below) Other Dermatologic History: Infected toes. - Infectious Disease History Infectious Disease History: Reports: Chicken Pox, Measles, MRSA - Past Surgical History HEENT Surgical History: Reports: Retinal Cardiovascular Surgical History: Reports: Coronary Artery Bypass, Coronary Artery Stent GI Surgical History: Reports: Cholecystectomy Other GI Surgeries/Procedures: 4 port cholecystectomy Male Surgical History: Reports: None Social & Family History - Family History Family Medical History: Noncontributory Other HEENT Family History: impaired vision mother. Cardiac: Reports: Bypass, High Cholesterol, Hypertension Other Cardiac Family History: mother : Reports: Diabetic Nephropathy, Dialysis Other Family History: mother Neurological: Reports: Neuropathy, Diabetic Endocrine/Metabolic: Reports: Diabetes, type II Other Endocrine/Metabolic Family History: mother - Caffeine Use Caffeine Use: Reports: Coffee ED ROS GENERAL - Review of Systems Review Of Systems: ROS reveals no pertinent complaints other than HPI. ED EXAM, CPR - Physical Exam Exam: See Below Text/Narrative:: Patient cold extremities and core, cyanotic. Left pupil fixed dilated, Absent femoral and apical pulse. lungs coarse Abdomen gross swelling ting. Extremities mottled. IO in left lower leg. Limited By: No Limitations General Appearance: Other (Unresponsive, cold, mottled Intubated, ) Eye Exam: Bilateral Eye: Other ( right absent, left dilated non reactive) Ears: Normal External Exam Nose: Normal Inspection Respiratory Chest: Other (absent breath sound, no respiratory effort. esophageal gurgling with bag compression) Cardiovascular: Absent Heart Sounds, CPR In Progress, Other (asystole on monitor , non conducted pacer spikes). No: Pulse with Compression GI/Abdominal Exam: Distended. No: Normal Bowel Sounds 0: Right Carotid, Left Carotid Extremities: Mottled Neurological: Unresponsive Skin Exam: Cool, Cyanosis Course - Orders/Labs/Meds Meds: Medications Discontinued Medications Generic Name Dose Route Start Last Admin Trade Name Freq PRN Reason Stop Dose Admin Epinephrine HCl 1 mg 01/01/19 05:43 Epinephrine 1:10,000 IV 01/01/19 05:44 .STK-MED ONE - Re-Assessments/Exams Free Text/Narrative Re-Assessment/Exam: 01/01/19 06:52 Patient CPR greater than 30 minutes, hypoxia, Gastric distension. Significant co morbidities. Called at 0556. Patient decesased abesent pulse and no breath sound. Departure - Departure Time of Disposition: 07:35 Disposition: 20 Preliminary Cause of *Q: Cardiac Arrest Clinical Impression: Cardiac arrest - Discharge Information *PRESCRIPTION DRUG MONITORING PROGRAM REVIEWED*: No *COPY OF PRESCRIPTION DRUG MONITORING REPORT IN PATIENT ECTOR: No Referrals: PCP,None [Primary Care Provider] - Forms: ED Department Discharge
== END 2019-01-01 08:42 | disposition expired ==
LOC: DL.ED 05:42
DX: I46.9 Cardiac arrest, cause unspecified (principal); I13.0 Hypertensive heart and chronic kidney disease with heart failure and stage 1 through stage 4 chronic kidney disease, or unspecified chronic kidney disease; I50.9 Heart failure, unspecified; N18.9 Chronic kidney disease, unspecified; E11.40 Type 2 diabetes mellitus with diabetic neuropathy, unspecified; E11.22 Type 2 diabetes mellitus with diabetic chronic kidney disease; K21.9 Gastro-esophageal reflux disease without esophagitis; M19.90 Unspecified osteoarthritis, unspecified site; Z95.1 Presence of aortocoronary bypass graft; Z95.5 Presence of coronary angioplasty implant and graft; Z79.899 Other long term (current) drug therapy; Z90.49 Acquired absence of other specified parts of digestive tract; Z79.4 Long term (current) use of insulin; Z88.1 Allergy status to other antibiotic agents; Z99.2 Dependence on renal dialysis
CPT/HCPCS: 92950; 99285; J0171